=== PATIENT | female | born 1955 | race Caucasian/White ===

== ENCOUNTER 2020-06-09 22:43 | Emergency (ER) | payer OTHER ==
[~2020-06-09] VITALS: Ht 170.2 cm; Wt 74.0 kg
--- NOTE | 2020-06-09 23:21 | PHYS DOC ---
Past History Additional Past Medical Histor: Vitamin D deficiency Past Surgical History: Tubal ligation Additional Past Surgical Histo: D&C, dental surgery Smoking: Cigarettes Alcohol Use: Rarely Drug Use: None General Adult EDM: Chief Complaint: ABDOMINAL PAIN HPI: HPI: 65-year-old female presents with several week history of abdominal discomfort that appears to correlate with when patient has been taking her weekly vitamin D medications. Patient had presented to see her PCP regarding this who did not think symptoms were secondary to the vitamin D medication. Patient reports has been worse over the last several days. Reports some associated nausea and constipation. Denies fever or chills. Denies known sick contacts. Denies known exposure to COVID-19. Denies trauma. Review of Systems: Review of Systems: Constitutional: Denies fever or chills Eyes: Denies redness or eye pain HENT: Denies nasal congestion or sore throat Respiratory: Denies cough or shortness of breath Cardiovascular: Denies chest pain or palpitations GI: Reports abdominal pain, nausea, and constipation; denies vomiting or diarrhea : Denies dysuria or hematuria Musculoskeletal: Denies back pain or joint pain Integument: Denies rash or skin lesions Neurologic: Denies headache, focal weakness or sensory changes Complete systems were reviewed and found to be within normal limits, except as documented in this note. Current Medications: Current Meds: Current Medications Medications (Trade) Dose Ordered Sig/Starla Start Time Stop Time Status Last Admin Dose Admin Famotidine (Pepcid Vial) 20 mg 1X ONCE 06/09/20 23:30 06/09/20 23:31 Info (Do NOT chart on this entry -- for MONITORING) 1 each PRN DAILY PRN 06/09/20 23:30 06/11/20 23:29 Iohexol (Omnipaque 300 Mg/ml) 75 ml 1X ONCE 06/09/20 23:30 06/09/20 23:31 Ondansetron HCl (Zofran) 4 mg 1X ONCE 06/09/20 23:30 06/09/20 23:31 Sodium Chloride 1,000 ml @ 1,000 mls/hr 1X ONCE 06/09/20 23:30 06/10/20 00:29 Allergies: Allergies: Allergies Coded Allergies Type Severity Reaction Last Updated Verified No Known Drug Allergies 06/09/20 No Physical Exam: PE: Constitutional: Well developed, well nourished, no acute distress, non-toxic appearance HENT: Normocephalic, atraumatic Eyes: Conjunctiva normal, no discharge Neck: Normal range of motion, no tenderness, supple Lungs & Thorax: No respiratory distress, equal chest rise and fall Abdomen: Soft, mild epigastric tenderness, no guarding/rebound tenderness/disten tion Skin: Warm, dry, no erythema, no rash Back: No tenderness, no CVA tenderness Extremities: No tenderness, ROM intact, no edema Neurologic: Alert and oriented X 3, no focal deficits noted Psychologic: Affect normal, judgment normal EKG: EKG: @2304 NSR at 81bpm, NO ST elevation, QRS 98ms, QT/QTc 370/435ms, low voltage limb leads, baseline artifact noted Radiology/Procedures: Radiology/Procedures: PROCEDURE: CT ABD PELV W/ IV CONTRST ONLY PQRS Compliance Statement: One or more of the following individualized dose reduction techniques were utilized for this examination: 1. Automated exposure control 2. Adjustment of the mA and/or kV according to patient size 3. Use of iterative reconstruction technique CT ABDOMEN+PELVIS W Clinical Indication: Reason: epigastric pain with radiation to back Comparison: None. Technique: Helical CT imaging of the abdomen and pelvis is performed after 75 cc of Omnipaque 300 IV contrast. Oral contrast not administered. Findings: Calcified granuloma posterior right lower lobe. Lung bases are clear. Cardiac size normal. There are a few small cysts or hemangiomas in the liver. One of the larger is in the right hepatic lobe and measures 1.7 cm. 1 of the larger is in segment IVb near the gallbladder fossa and measures 1.6 cm. There is a 2 cm gallstone near the neck. Gallbladder is distended. Trace pericholecystic induration. No obvious gallbladder wall thickening is seen by CT. Calcified granulomas in the spleen. The pancreas, adrenal glands, and kidneys are normal. Atherosclerotic calcification of the abdominal aorta and iliac ar teries, no aneurysm. The stomach is not well distended accentuating the wall thickness. There is no small bowel obstruction. The appendix is normal. Scattered stool in the proximal colon. There is no colon wall thickening. There is no abdominal adenopathy or free fluid. In the right gluteal subcutaneous fat there is a superficial cystic lesion measuring 2.6 cm AP by 4.8 cm transverse by 2.8 cm craniocaudal. This abuts the skin surface. There is no skin thickening. There is no surrounding induration. Considerations include a large sebaceous cyst or old hematoma. Uterus and ovaries are unremarkable. The urinary bladder is normal. No pelvic free fluid. There is arthropathy of the bilateral hips, worse on the left. Vacuum disc phenomenon L5/S1. IMPRESSION: 1. The gallbladder is distended, there is a 2 cm gallstone near the neck, and there is minimal pericholecystic induration. There is no obvious gallbladder wall thickening. Cannot exclude cholecystitis. Consider right upper quadrant ultrasound. 2. There are several small hepatic cysts or hemangiomas. Electronically signed by: Luis Beard MD (06/10/2020 12:31 AM) [facility] PROCEDURE: ABDOMEN LTD Right upper quadrant abdominal ultrasound History: Reason: RUQ, eval for cholecystitis, abnormal CT. Comparison: CT abdomen and pelvis with contrast, earlier same day. Technique: Transabdominal ultrasound images are obtained. Findings: Visualized pancreas is unremarkable. Liver is normal in echogenicity. Several hepatic cysts are seen. Size about 1.5 cm or less. Right hepatic lobe measures 14.9 cm. Portal flow is hepatopedal. Gallbladder is distended, length is 10.7 cm. The gallbladder is filled with echogenic sludge. There is a large echogenic gallstone with posterior acoustic shadowing near the neck measuring on the order of 3.6 cm. There is mild gallbladder wall thickening measuring 4 mm. Offshore Wind Turbine Technician does not report a positive sonographic High sign. There is trace pericholecystic fluid. Common bile duct caliber is normal measuring 7 mm in diameter. The right kidney measures 10.6 cm in length. There is no hydronephrosis. IVC is patent. IMPRESSION: 1. The gallbladder is distended and is filled with echogenic sludge. There is a large gallstone near the neck. There is mild gallbladder wall thickening and trace pericholecystic fluid. Findings suggest acute cholecystitis. 2. Small hepatic cysts. Electronically signed by: Luis Beard MD (06/10/2020 2:21 AM) [facility] Course & Med Decision Making: Course & Med Decision Making Pertinent Labs and Imaging studies reviewed. (See chart for details) Patient presents with abdominal pain that has been ongoing for the past several weeks. Patient reports she thinks it is secondary to vitamin D medication she is currently taking with her PCP. Patient also reports some constipation issues. Abdomen non-peritoneal. Patient does report some nausea. Nausea and pain addressed. IV fluid hydration given. Labs obtained and posted to chart. EKG stable. CT abdomen/pelvis with signs of cholelithiasis with concern for possible cholecystitis. Radiology recommendation for ultrasound. Ultrasound obtained with confirmation of acute cholecystitis. Empiric antibiotics provided. Rapid COVID-19 testing performed. Patient last ate at 1830. Discussed case with Dr. Bejarano (general surgery) at [facility] regarding consultation. Patient requiring transfer to [facility] for admission for further evaluation and treatment. Discussed with Dr. Scott (hospitalist) who is in agreement with transfer for admission to [facility]. Discussed findings and plan with patient and family, who acknowledge understanding and agreement. Jaja Disclaimer: Jaja Disclaimer: This electronic medical record was generated, in whole or in part, using a voice recognition dictation system. Departure Departure: Impression: Primary Impression: Acute cholecystitis Disposition: 05 DC/TRF OTHER TYPE INSTITUTI ([facility]- Dr. Scott accepting/ Dr. Bejarano notified of consultation) Condition: STABLE Referrals: JAISON THOMAS MD (PCP) LYNN WARNER DO Jun 09, 2020 23:21
[2020-06-09] MEDS ORDERED: FAMOTIDINE 20 MG/2 ML VIAL IVP ONE (23:30)
[2020-06-09] MEDS ORDERED: IOHEXOL 300 MG/ML 75 ML VIAL. IV ONE (23:30)
[2020-06-09] MEDS ORDERED: CONTRAST GIVEN. MC PRN (23:30)
[2020-06-09] MEDS ORDERED: IV NORMAL SALINE 1,000ML 1,000 ML IV ONE (23:30)
[2020-06-09] MEDS ORDERED: ONDANSETRON PF 4 MG/2 ML VIAL. IVP ONE (23:30)
[2020-06-09 23:50] LABS: BASO # 0.1 x10^3/uL (0.0-0.2); BASO % 1 % (0-3); EOS # 0.1 x10^3/uL (0.0-0.7); EOS % 1 % (0-3); HEMATOCRIT 43.6 % (36.0-47.0); HEMOGLOBIN 14.5 g/dL (12.0-15.5); LYMPH # 1.6 x10^3/uL (1.0-4.8); LYMPH % 15 % (24-48); MEAN CORPUSCULAR HEMOGLOBIN 29 pg (25-35); MEAN CORPUSCULAR HGB CONC 33 g/dL (31-37); MEAN CORPUSCULAR VOLUME 88 fL (79-100); MONO # 0.8 x10^3/uL (0.0-1.1); MONO % 7 % (0-9); NEUT # 8.6 x10^3uL (1.8-7.7); NEUT % 77 % (31-73); PLATELET COUNT 176 x10^3/uL (140-400); RED BLOOD COUNT 4.95 x10^6/uL (3.50-5.40); RED CELL DISTRIBUTION WIDTH 13.6 % (11.5-14.5); WHITE BLOOD COUNT 11.2 x10^3/uL (4.0-11.0)
[2020-06-09 23:56] LABS: BACTERIA,URINE 0 /HPF (0-FEW); BILIRUBIN,URINE NEG (NEG); CALCIUM 9.4 mg/dL (8.5-10.1); CLARITY,URINE CLEAR; COLOR,URINE AMBER; CREATININE 0.7 mg/dL (0.6-1.0); GFR 84.2; GLUCOSE,URINE NEG (NEG); NITRITE,URINE NEG (NEG); POTASSIUM 3.8 mmol/L (3.5-5.1); RBC,URINE 0 /HPF (0-2); SQUAMOUS EPITHELIAL CELL,UR MOD /LPF; UROBILINOGEN,URINE 0.2 mg/dL (0.2 mg/dL); WBC,URINE OCC /HPF (0-4)
[2020-06-10] MEDS ORDERED: KETOROLAC 15 MG/ML VIAL. IVP ONE
[2020-06-10 00:23] LABS: ALBUMIN 3.8 g/dL (3.4-5.0); ALBUMIN/GLOBULIN RATIO 1.2 (1.0-1.7); MAGNESIUM 2.1 mg/dL (1.8-2.4); TOTAL BILIRUBIN 0.5 mg/dL (0.2-1.0); TOTAL PROTEIN 6.9 g/dL (6.4-8.2)
--- NOTE | 2020-06-10 00:33 | RAD ---
PQRS Compliance Statement: One or more of the following individualized dose reduction techniques were utilized for this examinat ion: 1. Automated exposure control 2. Adjustment of the mA and/or kV according to patient size 3. Use of iterative reconstruction technique CT ABDOMEN+PELVIS W Clinical Indication: Reason: epigastric pain with radiation to back Comparison: None. Technique: Helical CT imaging of the abdomen and pelvis is performed after 75 cc of Omnipaque 300 IV contrast. Oral contrast not administered. Findings: Calcified granuloma posterior right lower lobe. Lung bases are clear. Cardiac size normal. There are a few small cysts or hemangiomas in the liver. One of the larger is in the right hepatic lo be and measures 1.7 cm. 1 of the larger is in segment IVb near the gallbladder fossa and measures 1.6 cm. There is a 2 cm gallstone near the neck. Gallbladder is distended. Trace pericholecystic induration. No obvious gallbladder wall thickening is seen by CT. Calcified granulomas in the spleen. The pancreas, adrenal glands, and kidneys are normal. Atheroscler otic calcification of the abdominal aorta and iliac arteries, no aneurysm. The stomach is not well distended accentuating the wall thickness. There is no small bowel obstructio n. The appendix is normal. Scattered stool in the proximal colon. There is no colon wall thickening. There is no abdominal adenopathy or free fluid. In the right gluteal subcutaneous fat there is a superficial cystic lesion measuring 2.6 cm AP by 4.8 cm transverse by 2.8 cm craniocaudal. This abuts the skin surface. There is no skin thickening. Ther e is no surrounding induration. Considerations include a large sebaceous cyst or old hematoma. Uterus and ovaries are unremarkable. The urinary bladder is normal. No pelvic free fluid. There is arthropathy of the bilateral hips, worse on the left. Vacuum disc phenomenon L5/S1. IMPRESSION: 1. The gallbladder is distended, there is a 2 cm gallstone near the neck, and there is minimal peric holecystic induration. There is no obvious gallbladder wall thickening. Cannot exclude cholecystitis. Consider right upper quadrant ultrasound. 2. There are several small hepatic cysts or hemangiomas. Electronically signed by: Luis Beard MD (06/10/2020 12:31 AM) [facility]
--- NOTE | 2020-06-10 02:23 | RAD ---
Right upper quadrant abdominal ultrasound History: Reason: RUQ, eval for cholecystitis, abnormal CT. Comparison: CT abdomen and pelvis with contrast, earlier same day. Technique: Transabdominal ultrasound images are obtained. Findings: Visualized pancreas is unremarkable. Liver is normal in echogenicity. Several hepatic cysts are seen. Size about 1.5 cm or less. Right hep atic lobe measures 14.9 cm. Portal flow is hepatopedal. Gallbladder is distended, length is 10.7 cm. The gallbladder is filled with echogenic sludge. There i s a large echogenic gallstone with posterior acoustic shadowing near the neck measuring on the order of 3.6 cm. There is mild gallbladder wall thickening measuring 4 mm. Purchasing Coordinator does not report a po sitive sonographic High sign. There is trace pericholecystic fluid. Common bile duct caliber is normal measuring 7 mm in diameter. The right kidney measures 10.6 cm in length. There is no hydronephrosis. IVC is patent. IMPRESSION: 1. The gallbladder is distended and is filled with echogenic sludge. There is a large gallstone near the neck. There is mild gallbladder wall thickening and trace pericholecystic fluid. Findings sugges t acute cholecystitis. 2. Small hepatic cysts. Electronically signed by: Luis Beard MD (06/10/2020 2:21 AM) [facility]
[2020-06-10] MEDS ORDERED: ONDA4TAB12 PO (02:26)
[2020-06-10] MEDS ORDERED: SENN-121 PO (02:26)
[2020-06-10] MEDS ORDERED: POLY119P4 PO (02:26)
[2020-06-10] MEDS ORDERED: FAMO-63 PO (02:26)
[2020-06-10] MEDS ORDERED: PIPERACILLIN/TAZOBACTAM 3.375 GM in IV NORMAL SALINE 50ML 50 ML IV ONE (03:00)
[2020-06-10] MEDS ORDERED: PIPERACILLIN/TAZOBACTAM 3.375 GM VIAL IV ONE (03:08)
[2020-06-10] MEDS ORDERED: IV NORMAL SALINE 50ML 50 ML ONE (03:08)
[2020-06-10 03:47] VITALS: BP 163/91
--- NOTE | 2020-06-10 04:04 | EKG ---
[address] [address] Test Date: 2020-06-09 Test Time: 23:04:15 Pat Name: JUSTYN GALARZA Department: Room: Gender: F Dock Hand: MILDRED : 1955 Requested By: LYNN WARNER Order Number: [id number] Reading MD: Measurements Intervals [place] Rate: 81 P: 152 [place]: 114 QRS: -14 QRSD: 98 T: 146 QT: 370 QTc: 435 Interpretive Statements SUPRAVENTRICULAR RHYTHM LEFT ATRIAL ABNORMALITY LEFTWARD AXIS LOW LIMB LEAD VOLTAGE T ABNORMALITY IN HIGH LATERAL LEADS ABNORMAL ECG RI6.02 No previous ECG available for comparison
== END 2020-06-10 04:20 | disposition short-term general hospital (02) ==
LOC: ER 22:43
DX: K81.0 Acute cholecystitis (principal); K59.00 Constipation, unspecified; F17.210 Nicotine dependence, cigarettes, uncomplicated; Z20.822 Contact with and (suspected) exposure to COVID-19; Z98.51 Tubal ligation status
CPT/HCPCS: 36415; 74177; 76705; 80053; 81001; 82553; 83690; 83735; 84484; 85025; 85610; 85730; 87426; 93005; 96361; 96365; 96375; 99285; C9803; J1885; J2405; J2543; J3010; J3490; J7030; Q9967; U0003

== ENCOUNTER 2020-06-12 14:05 | Emergency (ER) | payer OTHER ==
[~2020-06-12] VITALS: Ht 170.2 cm; Wt 75.1 kg
[2020-06-12 14:05] VITALS: BP 155/76
[~2020-06-12 14:05] MED LIST: FAMO-63 PO; ONDA4TAB12 PO; POLY119P4 PO; SENN-121 PO
[2020-06-12] MEDS ORDERED: MUPI22OI2 TP (14:46)
--- NOTE | 2020-06-12 14:46 | PHYS DOC ---
Past History Past Medical History: Other Additional Past Medical Histor: Vitamin D deficiency Past Surgical History: Cholecystectomy, Tubal ligation Additional Past Surgical Histo: D&C, dental surgery Smoking: Cigarettes Alcohol Use: Rarely Drug Use: None Adult General Chief Complaint Chief Complaint: POST-OP PROBLEM HPI HPI Patient is a 65-year-old female presents emergency department complaining of a possible infection from her gallbladder surgery she had 2 [address] surgeon [address] Bejarano at [facility]. Patient denies any pain to the site does notice some redness around the incision site at her umbilicus. Patient states the redness had grown between last night and this morning and was concerned that it might be infection. Patient states she has 3 other incision sites that are not red and she is not worried about infection. Patient denies any fever or chills, denies abdominal pain, nausea, vomiting, diarrhea, chest pain, or shortness of breath. Patient denies being in any pain. Patient states her main concern was just an evaluation of her surgical scar for infection. Patient denies any other physical complaints or physical concerns. Review of Systems Review of Systems 14 body systems of review of systems have been reviewed. See HPI for pertinent positives and negative responses, otherwise all other systems are negative, nonpertinent or noncontributory. Allergies Allergies Allergies Coded Allergies Type Severity Reaction Last Updated Verified No Known Drug Allergies 06/09/20 No Physical Exam Physical Exam Constitutional: Well developed, well nourished, no acute distress, non-toxic appearance. HENT: Normocephalic, atraumatic, bilateral external ears normal, oropharynx moist, no oral exudates, nose normal. Eyes: PERRLA, EOMI, conjunctiva normal, no discharge. Neck: Normal range of motion, no tenderness, supple, no stridor. Cardiovascular:Heart rate regular rhythm, no murmur Lungs & Thorax: Bilateral breath sounds clear to auscultation Abdomen: Bowel sounds normal, soft, no tenderness, no masses, no pulsatile masses. Skin: Warm, dry, no erythema, no rash. 3 surgical sites along right upper quadrant consistent with laparoscopy procedure, bandaged, no drainage noted, no redness or erythema around incision sites. Patient's umbilical incision site bandaged, covered with Steri-Strips and was directed by her surgeon Dr. Bejarano not to remove. Extending inferiorly from umbilicus surgical laparoscopy insertion site is a 3 cm wide by 5 cm in length area of erythema, no induration appreciated, the areas not hot to touch, skin color is light pink, there is no p urulent drainage. Back: No tenderness, no CVA tenderness. Extremities: No tenderness, no cyanosis, no clubbing, ROM intact, no edema. Neurologic: Alert and oriented X 3, normal motor function, normal sensory function, no focal deficits noted. Psychologic: Affect normal, judgement normal, mood normal. Current Patient Data Vital Signs Vital Signs Date Time Temp Pulse Resp B/P (MAP) Pulse Ox O2 Delivery O2 Flow Rate FiO2 06/12/20 14:05 98.0 83 16 155/76 (102) 99 EKG EKG [] Radiology/Procedures Radiology/Procedures [] Heart Score Risk Factors: Risk Factors: DM, Current or recent (<one month) smoker, HTN, HLP, family history of CAD, obesity. Risk Scores: Risk Factors: DM, Current or recent (<one month) smoker, HTN, HLP, family history of CAD, obesity. Course & Med Decision Making Course & Med Decision Making Pertinent Labs and Imaging studies reviewed. (See chart for details) 65-year-old female, vital signs reviewed, presents emergency department for evaluation of recent gallbladder surgical wound at umbilicus. Physical examination questionable infectious process, there was no drainage, patient has good home wound care by daughter that is a nurse, the area of question was marked with skin marker to evaluate progression of erythema. Discussed with patient will start on mupirocin ointment to apply 3 times a day, do not remove Steri-Strips as directed by her surgeon, patient will surgeon tomorrow and follow-up this week for reevaluation of wounds. Patient gave verbal understand ing of home care, follow-up with surgeon, follow with primary care, return ER concerns, discharged home. Dragon Disclaimer Dragon Disclaimer This electronic medical record was generated, in whole or in part, using a voice recognition dictation system. Departure Departure: Impression: Primary Impression: Infected surgical wound Disposition: 01 DC HOME SELF CARE/HOMELESS Condition: GOOD Referrals: JAISON THOMAS MD (PCP) Additional Instructions: Apply mupirocin antibiotic ointment to infected area 3 times a day, call your surgeon tomorrow for a reevaluation of surgical wounds, return to the emergency department for worsening symptoms or other concerns. EMERGENCY DEPARTMENT GENERAL DISCHARGE INSTRUCTIONS Thank you for coming to [facility] (ED) today and trusting us with you care. We trust that you had a positivie experience in our Emergency Department. If you wish to speak to the department management, you may call the director at [phone]. YOUR FOLLOW UP INSTRUCTIONS ARE FOLLOWS: 1. Do you have a private Doctor? If you do not have a private doctor, please ask for a resource list of physicians or clinics that may be able to assist you with follow up care. 2. The Emergency Physician has interpreted your x-rays. The X-Ray specialist will also review them. If there is a change in the findings, you will be notified in 48 hours when at all possible. 3. A lab test or culture has been done, your results will be reviewed and you will be notified if you need a change in treatment. ADDITIONAL INSTRUCTIONS AND INFORMATION: 1. Your care today has been supervised by a physician who is specially trained in emergency care. Many problems require more than one evaluation for a complete diagnosis and treatment. We recommend that you schedule your follow up appointment as recommended to ensure complete treatment of you illness or injury. If you are unable to obtain follow up care and continue to have a problem, or if your condition worsens, we recommend that you return to the ED. 2. We are not able to safely determine your condition over the phone nor are we able to give sound medical advice over the phone. For these safety reasons, if you call for medical advice we will ask you to come to the ED for further evaluation. 3. If you have any questions regarding these discharge instructions please call the ED at [phone]. SAFETY INFORMATION: In the interest of safety, wellness, and injury prevention; we encourage you to wear your sealbelt, if you smoke; quite smoking, and we encourage family to use a protective helmet for bicycling and other sporting events that present an increased risk for head injury. IF YOUR SYMPTOMS WORSEN OR NEW SYMPTOMS DEVELOP, OR YOU HAVE CONCERNS ABOUT YOUR CONDITION; OR IF YOUR CONDITION WORSENS WHILE YOU ARE WAITING FOR YOUR FOLLOW UP APPOI NTMENT; EITHER CONTACT YOUR PRIMARY CARE DOCTOR, THE PHYSICIAN WHOSE NAME AND NUMBER YOU WERE GIVEN, OR RETURN TO THE ED IMMEDIATELY. Scripts Mupirocin (MUPIROCIN) 22 Gm Oint...g. 1 FAUSTINA TP TID for SKIN INFECTION, #22 GM 0 Refills Prov: LYNN FLANNERY APRN 06/12/20 LYNN FLANNERY APRN Jun 12, 2020 14:46
== END 2020-06-12 14:48 | disposition home or self-care (01) ==
LOC: ER 14:05
DX: T81.49XA Infection following a procedure, other surgical site, initial encounter (principal); L53.9 Erythematous condition, unspecified; Z90.49 Acquired absence of other specified parts of digestive tract; F17.210 Nicotine dependence, cigarettes, uncomplicated; Z98.51 Tubal ligation status; Z98.890 Other specified postprocedural states
CPT/HCPCS: 99283

== ENCOUNTER 2021-06-07 19:26 | Emergency (ER) | payer MEDICARE, OTHER ==
[~2021-06-07] VITALS: Ht 170.2 cm; Wt 70.0 kg
[~2021-06-07 19:26] MED LIST changes: +MUPI22OI2 TP
--- NOTE | 2021-06-07 20:57 | PHYS DOC ---
Past History Past Medical History: Other Additional Past Medical Histor: Vitamin D deficiency (RENATA GREWAL) Past Surgical History: Cholecystectomy, Tubal ligation Additional Past Surgical Histo: D&C, dental surgery (RENATA GREWAL) Smoking: Cigarettes Alcohol Use: Rarely Drug Use: None (RENATA GREWAL) General Adult EDM: Chief Complaint: HYPERTENSION HPI: HPI: Patient is a 66 year old female who presents with elevated blood pressure today. Patient reports her blood pressure reading at home was 190s/80s. In March 2020, while the patient was at the dentist, they noted that she had a very high blood pressure. [place]. She states that she took it for. Of weeks, but became very hypotensive, so her doctor instructed her to stop taking it. Patient did bring a blood pressure log with her to the department today, which shows consistent blood pressure readings of 130s/80s, with occasional jumps in the e vening. Patient reports a feeling of being "lightheaded" and having "high heart rate." She does report that she becomes anxious when she experiences these physical sensations, after which she checks her blood pressure. Patient denies headache, vision changes, vertigo, chest pain. She has no other complaints at this time. (RENATA GREWAL) Review of Systems: Review of Systems: Constitutional: Denies fever, chills or generalized weakness Eyes: Denies change in visual acuity, visual field deficits or discharge HENT: Denies ear pain, nasal congestion or sore throat Respiratory: Denies cough or shortness of breath Cardiovascular: See HPI GI: Denies abdominal pain, nausea, vomiting, bloody stools or diarrhea : Denies dysuria or hematuria Musculoskeletal: Denies back pain or joint pain Integument: Denies rash or other skin lesion Neurologic: Denies headache, focal weakness or sensory changes (RENATA GREWAL) Allergies: Allergies: Allergies Coded Allergies Type Severity Reaction Last Updated Verified No Known Drug Allergies 06/09/20 No (RENATA GREWAL) Physical Exam: PE: Constitutional: Well developed, well nourished, no acute distress, non-toxic appearance. HENT: Normocephalic, atraumatic, bilateral external ears normal, oropharynx moist, nose normal. Eyes: PERRLA, EOMI, conjunctiva normal, no discharge. Neck: Normal range of motion, no stridor, no JVD. Cardiovascular: Heart rate regular rhythm, no murmur. Lungs & Thorax: Bilateral breath sounds clear to auscultation. Skin: Warm, dry, no erythema, no rash. Extremities: No tenderness, no cyanosis, no clubbing, ROM intact, no edema. Neurologic: Alert and oriented x4, steady and symmetrical gait, no focal deficits noted. (RENATA GREWAL) Current Patient Data: Labs: Laboratory Tests Test 06/07/21 20:35 06/07/21 20:45 Urine Collection Type Unknown Urine Color Yellow Urine Clarity Clear Urine pH 6.0 Urine Specific [place] <=1.005 Urine Protein Neg (NEG-TRACE) Urine Glucose (UA) Neg mg/dL (NEG) Urine Ketones (Stick) Neg mg/dL (NEG) Urine Blood Neg (NEG) Urine Nitrite Neg (NEG) Urine Bilirubin Neg (NEG) Urine Urobilinogen Dipstick 0.2 mg/dL (0.2 mg/dL) Urine Leukocyte Esterase Neg (NEG) Urine RBC 0 /HPF (0-2) Urine WBC Occ /HPF (0-4) Urine Squamous Epithelial Cells Few /LPF Urine Bacteria 0 /HPF (0-FEW) White Blood Count 9.5 x10^3/uL (4.0-11.0) Red Blood Count 4.71 x10^6/uL (3.50-5.40) Hemoglobin 14.4 g/dL (12.0-15.5) Hematocrit 42.5 % (36.0-47.0) Mean Corpuscular Volume 90 fL (79-100) Mean Corpuscular Hemoglobin 31 pg (25-35) Mean Corpuscular Hemoglobin Concent 34 g/dL (31-37) Red Cell Distribution Width 13.6 % (11.5-14.5) Platelet Count 175 x10^3/uL (140-400) Neutrophils (%) (Auto) 69 % (31-73) Lymphocytes (%) (Auto) 20 % (24-48) Monocytes (%) (Auto) 9 % (0-9) Eosinophils (%) (Auto) 1 % (0-3) Basophils (%) (Auto) 1 % (0-3) Neutrophils # (Auto) 6.5 x10^3uL (1.8-7.7) Lymphocytes # (Auto) 1.9 x10^3/uL (1.0-4.8) Monocytes # (Auto) 0.9 x10^3/uL (0.0-1.1) Eosinophils # (Auto) 0.1 x10^3/uL (0.0-0.7) Basophils # (Auto) 0.1 x10^3/uL (0.0-0.2) Sodium Level 136 mmol/L (136-145) Potassium Level 4.0 mmol/L (3.5-5.1) Chloride Level 102 mmol/L (98-107) Carbon Dioxide Level 27 mmol/L (21-32) Anion Gap 7 (6-14) Blood Urea Nitrogen 6 mg/dL (7-20) Creatinine 0.5 mg/dL (0.6-1.0) Estimated GFR (Cockcroft-Gault) 123.8 BUN/Creatinine Ratio 12 (6-20) Glucose Level 92 mg/dL (70-99) Calcium Level 9.3 mg/dL (8.5-10.1) Total Bilirubin 0.3 mg/dL (0.2-1.0) Aspartate Amino Transf (AST/SGOT) 18 U/L (15-37) Alanine Aminotransferase (ALT/SGPT) 23 U/L (14-59) Alkaline Phosphatase 60 U/L (46-116) Troponin I High Sensitivity 10 ng/L (4-50) Total Protein 6.8 g/dL (6.4-8.2) Albumin 3.9 g/dL (3.4-5.0) Albumin/Globulin Ratio 1.3 (1.0-1.7) Vital Signs: VS - Last 72 Hours, by Label Date Time Temp Pulse Resp B/P (MAP) Pulse Ox O2 Delivery O2 Flow Rate FiO2 06/07/21 22:52 70 12 148/84 (105) 95 Room Air 06/07/21 22:12 66 16 165/90 (115) 96 Room Air 06/07/21 21:42 64 15 165/88 (113) 96 Room Air 06/07/21 20:41 68 16 192/97 (128) 95 Room Air 06/07/21 19:35 97.9 83 20 129/58 (81) 95 Room Air (RENATA GREWAL) EKG: EKG: EKG Interpreted by Dr. Kramer at 1950: Regular rate and rhythm 67 bpm with no ectopic beats. QT 398 ms/QTc 423 ms. No STEMI. (RENATA GREWAL) Radiology/Procedures: Radiology/Procedures: Preliminary read of chest x-ray done by Dr. Kramer while in the department. No evidence of acute cardiopulmonary process. PROCEDURE: CHEST AP ONLY Study: XR CHEST 1V Indication: Hypertension. Lightheaded. Comparison: None. Findings: Mildly prominent lung volumes and interstitial markings. No confluent infiltrate, pneumothorax or pleural effusion. The cardiomediastinal silhouette and enrico are within normal limits. Impression: No acute radiographic abnormality of the chest. The appearance of the lungs raises the question of emphysema if there is a smoking history. Electronically signed by: TYESHA MANZO MD (06/07/2021 9:43 PM) [facility] (RENATA GREWAL) Heart Score: C/O Chest Pain: No (RENATA GREWAL) Course & Med Decision Making: Course & Med Decision Making Pertinent Labs and Imaging studies reviewed. (See chart for details) She is a 66-year-old female whose chief complaint is intermittent hypertension. Work-up today will evaluate for endorgan damage. I did have a detailed conversation at bedside with the patient and her regarding blood pressure log, effects of high blood pressure, and red flag symptoms/when to be concerned about hypertension. Patient requests contact information for Dr. Maria Guadalupe Butler as well as mental health resources. Work-up today was largely reassuring. Patient and her were informed of all findings. All of their questions were answered. They were provided with the requested follow-up information as well as return precautions. Patient and her understand and are agreeable to discharge plan. (RENATA GREWAL) Course & Med Decision Making Did not see or evaluate patient. Did not discuss patient with CARE MANAGEMENT COORDINATOR. Agree with CARE MANAGEMENT COORDINATOR's work-up and disposition per note. (NORIS KRAMER MD) Dragon Disclaimer: Dragon Disclaimer: This electronic medical record was generated, in whole or in part, using a voice recognition dictation system. (RENATA GREWAL) Departure Departure: Impression: Primary Impression: Elevated blood pressure reading Additional Impressions: Anxiety about health Other emphysema Disposition: 01 HOME / SELF CARE / HOMELESS Condition: STABLE Referrals: PCP,NO (PCP) MARIA GUADALUPE BUTLER Patient Instructions: Health Maintenance, Females, Hypertension, [id number] Additional Instructions: EMERGENCY DEPARTMENT GENERAL DISCHARGE INSTRUCTIONS Thank you for coming to [facility] (ED) today and trusting us with you care. We trust that you had a positive experience in our Emergency Department. If you wish to speak to the department management, you may call the director at [phone]. YOUR FOLLOW UP INSTRUCTIONS ARE FOLLOWS: 1. Follow up with your primary care doctor of choice. If you do not have a primary doctor, please ask for a resource list of physicians or clinics that may be able to assist you with follow up care. 2. The emergency provider has interpreted your imaging studies, if any were ordered. The radiology vehicle care specialist also reviewed them. If there is a change in the findings, you will be notified in 48 hours when at all possible. 3. If a lab test or culture has been done, your results will be reviewed and you will be notified if you need a change in treatment. 4. Follow instructions verbalized to you and refer to the printouts if needed. ADDITIONAL INSTRUCTIONS AND INFORMATION: 1. Your care today has been supervised by a physician who is specially trained in emergency care. Many problems require more than one evaluation for a complete diagnosis and treatment. We recommend that you schedule your follow up appointment as recommended to ensure complete treatment of you illness or injury. If you are unable to obtain follow up care and continue to have a problem, or if your condition worsens, we recommend that you return to the ED. 2. We are not able to safely determine your condition over the phone nor are we able to give sound medical advice over the phone. For these safety reasons, if you call for medical advice we will ask you to come to the ED for further evaluation. 3. If you have any questions regarding these discharge instructions please call the ED at [phone]. SAFETY INFORMATION: In the interest of safety, wellness, and injury prevention; we encourage you to wear your seat belt, if you smoke; quite smoking, and we encourage family to use a protective helmet for bicycling and other sporting events that present an increased risk for head injury. IF YOUR SYMPTOMS WORSEN OR NEW SYMPTOMS DEVELOP, OR YOU HAVE CONCERNS ABOUT YOUR CONDITION; OR IF YOUR CONDITION WORSENS WHILE YOU ARE WAITING FOR YOUR FOLLOW UP APPOINTMENT; EITHER CONTACT YOUR PRIMARY CARE DOCTOR, THE PHYSICIAN WHOSE NAME AND NUMBER YOU WERE GIVEN, OR RETURN TO THE ED IMMEDIATELY. RENATA GREWAL Jun 07, 2021 20:57 NORIS KRAMER MD Jun 13, 2021 18:32
[2021-06-07 21:19] LABS: BASO # 0.1 x10^3/uL (0.0-0.2); BASO % 1 % (0-3); EOS # 0.1 x10^3/uL (0.0-0.7); EOS % 1 % (0-3); HEMATOCRIT 42.5 % (36.0-47.0); HEMOGLOBIN 14.4 g/dL (12.0-15.5); LYMPH # 1.9 x10^3/uL (1.0-4.8); LYMPH % 20 % (24-48); MEAN CORPUSCULAR HEMOGLOBIN 31 pg (25-35); MEAN CORPUSCULAR HGB CONC 34 g/dL (31-37); MEAN CORPUSCULAR VOLUME 90 fL (79-100); MONO # 0.9 x10^3/uL (0.0-1.1); MONO % 9 % (0-9); NEUT # 6.5 x10^3uL (1.8-7.7); NEUT % 69 % (31-73); PLATELET COUNT 175 x10^3/uL (140-400); RED BLOOD COUNT 4.71 x10^6/uL (3.50-5.40); RED CELL DISTRIBUTION WIDTH 13.6 % (11.5-14.5); WHITE BLOOD COUNT 9.5 x10^3/uL (4.0-11.0)
[2021-06-07 21:25] LABS: BACTERIA,URINE 0 /HPF (0-FEW); BILIRUBIN,URINE NEG (NEG); CLARITY,URINE CLEAR; COLOR,URINE YELLOW; GLUCOSE,URINE NEG (NEG); NITRITE,URINE NEG (NEG); RBC,URINE 0 /HPF (0-2); SQUAMOUS EPITHELIAL CELL,UR FEW /LPF; UROBILINOGEN,URINE 0.2 mg/dL (0.2 mg/dL); WBC,URINE OCC /HPF (0-4)
[2021-06-07 21:29] LABS: CALCIUM 9.3 mg/dL (8.5-10.1); CREATININE 0.5 mg/dL (0.6-1.0); GFR 123.8
[2021-06-07 21:35] LABS: ALBUMIN 3.9 g/dL (3.4-5.0); ALBUMIN/GLOBULIN RATIO 1.3 (1.0-1.7); TOTAL BILIRUBIN 0.3 mg/dL (0.2-1.0); TOTAL PROTEIN 6.8 g/dL (6.4-8.2)
--- NOTE | 2021-06-07 21:46 | RAD ---
Study: XR CHEST 1V Indication: Hypertension. Lightheaded. Comparison: None. Findings: Mildly prominent lung volumes and interstitial markings. No confluent infiltrate, pneumothorax or ple ural effusion. The cardiomediastinal silhouette and enrico are within normal limits. Impression: No acute radiographic abnormality of the chest. The appearance of the lungs raises the question of em physema if there is a smoking history. Electronically signed by: TYESHA MANZO MD (06/07/2021 9:43 PM) [facility]
[2021-06-07 22:52] VITALS: BP 148/84
--- NOTE | 2021-06-09 07:14 | EKG ---
[address] [address] Test Date: 2021-06-07 Test Time: 19:51:28 Pat Name: JUSTYN GALARZA Department: Room: Gender: F [employer]: : 1955 Requested By: RENATA GREWAL Order Number: [id number] Reading MD: Richmond Ryan Measurements Intervals [place] Rate: 67 P: 66 HI: 138 QRS: 17 QRSD: 96 T: 47 QT: 398 QTc: 423 Interpretive Statements SINUS RHYTHM LEFT ATRIAL ABNORMALITY QRS(T) CONTOUR ABNORMALITY CONSISTENT WITH ANTEROSEPTAL INFARCT AGE UNDETERMINED ABNORMAL ECG Electronically Signed On 06-09-2021 13:07:57 LEGAL CLERK by Richmond Ryan
== END 2021-06-07 23:03 | disposition home or self-care (01) ==
LOC: ER 19:26
DX: R03.0 Elevated blood-pressure reading, without diagnosis of hypertension (principal); R42 Dizziness and giddiness; J43.8 Other emphysema; F17.210 Nicotine dependence, cigarettes, uncomplicated
CPT/HCPCS: 36415; 71045; 80053; 81001; 84484; 85025; 93005; 99285